=== PATIENT | female | born 1985 | race Caucasian/White ===

== ENCOUNTER 2020-07-24 11:11 | Emergency (ER) | payer MEDICAID ==
[~2020-07-24] VITALS: Ht 167.6 cm; Wt 90.7 kg
[2020-07-24 11:16] VITALS: BP_SYST 123
[2020-07-24] MEDS ORDERED: LORA10TA7 PO (11:42)
[2020-07-24 11:49] VITALS: BP_SYST 123
== END 2020-07-24 11:50 | disposition home or self-care (01) ==
LOC: SED 11:11
DX: M79.89 Other specified soft tissue disorders (principal); Z77.120 Contact with and (suspected) exposure to mold (toxic)
CPT/HCPCS: 81025; 99282

== ENCOUNTER 2020-07-29 13:26 | Emergency (ER) | payer MEDICAID ==
[~2020-07-29] VITALS: Ht 165.1 cm; Wt 74.8 kg
[~2020-07-29 13:26] MED LIST: LORA10TA7 PO
[2020-07-29 14:23] VITALS: BP_SYST 138
[2020-07-29 14:45] LABS: BILIRUBIN,URINE NEGATIVE (NEGATIVE); BLOOD, URINE NEGATIVE (NEGATIVE); CLARITY/URINE CLEAR (CLEAR); COLOR,URINE YELLOW (YELLOW); GLUCOSE,URINE NEGATIVE (NEGATIVE); KETONES,URINE NEGATIVE (NEGATIVE); LEUKOCYTE ESTERASE ,URINE 1+ (NEGATIVE); NITRITE, URINE NEGATIVE (NEGATIVE); PH,URINE 6.5 (5.0-8.0); PROTEIN URINE NEGATIVE (NEGATIVE); UROBILINOGEN,URINE 0.2 (0.2-1.0)
[2020-07-29 14:55] LABS: BACTERIA,URINE FEW /HPF (None Seen); MUCUS,URINE 1+ /LPF (None Seen); RBC,URINE 0-3 /HPF (0-3)
[2020-07-29] MEDS ORDERED: HYDR-3919 PO (15:00)
[2020-07-29] MEDS ORDERED: IBUP-1969 PO (15:00)
[2020-07-29 15:15] VITALS: BP_SYST 138
== END 2020-07-29 15:15 | disposition home or self-care (01) ==
LOC: SED 13:26
DX: N81.4 Uterovaginal prolapse, unspecified (principal)
CPT/HCPCS: 81000-TC; 81003; 81025; 87086; 99283

== ENCOUNTER → 2021-11-24 | Emergency (ER) | payer MEDICAID ==
[~2021-11-24] VITALS: Ht 165.1 cm; Wt 90.7 kg
[~2021-11-24] MED LIST changes: +HYDR-3919 PO; +IBUP-1969 PO
[2021-11-24 13:12] VITALS: BP_SYST 138
--- NOTE | 2021-11-24 15:50 | NUR ---
patient left without being seen at [id number]
== END | disposition left against medical advice (07) ==
LOC: SED 12:58
DX: J34.89 Other specified disorders of nose and nasal sinuses (principal); Z53.21 Procedure and treatment not carried out due to patient leaving prior to being seen by health care provider